=== PATIENT | female | born 1955 | race Caucasian/White ===

== ENCOUNTER → 2019-11-26 | Outpatient (CLI) | payer OTHER ==
[~2019-11-26] MED LIST: CALCIUM OYSTER500 MG PO; COMPAZINE10 M1 PO; DYAZIDE 37.5-21 EACH PO; FISHOIL; FLEXERIL PO; FOSAMAX 70 MG T70 M1 PO; GENTEAL GEL DRO15 ML; GLUCOPHAGE1000 MG PO; HYDROXYCHLOROQ200 M1 PO; IBUPROFEN 200200 M1 PO; LEXAPRO20 MG PO; MOBIC15 MG PO; MULTIVITAMINS PO; NASOCORT NS; PROTONIX40 M2 PO; REFRESH5 ML; RESTASIS1 EACH OP; TRAMADOL 50 MG50 MG PO; TYLENOL325 MG PO; VENTOLIN17 GM INH; VERAPAMIL ER240 M1 PO; VITAMIN D1000 UNI1 PO; ZOCOR 20 MG TAB20 M1 PO; ZYRTEC10 M2 PO
== END ==
LOC: CAT 14:23
PROVIDERS: ATTEND Internal Medicine Cardiovascular Disease
DX: Z13.6 Encounter for screening for cardiovascular disorders (principal); I25.10 Atherosclerotic heart disease of native coronary artery without angina pectoris; E78.00 Pure hypercholesterolemia, unspecified

== ENCOUNTER → 2019-11-26 | Outpatient (CLI) | payer OTHER | LOC: SJCVC 13:15 | PROVIDERS: ATTEND Internal Medicine Cardiovascular Disease | DX: R00.2 Palpitations (principal); R06.02 Shortness of breath; I10 Essential (primary) hypertension; E11.9 Type 2 diabetes mellitus without complications; E78.00 Pure hypercholesterolemia, unspecified; Z79.899 Other long term (current) drug therapy; Z82.49 Family history of ischemic heart disease and other diseases of the circulatory system ==

== ENCOUNTER → 2019-12-18 | Outpatient (CLI) | payer OTHER | LOC: SJCVCIMAG 08:54 | PROVIDERS: ATTEND Internal Medicine Cardiovascular Disease | DX: R00.2 Palpitations (principal); E11.9 Type 2 diabetes mellitus without complications ==

== ENCOUNTER → 2020-10-01 | Outpatient (CLI) | payer OTHER, MEDICARE | LOC: SJCVC 11:08 | PROVIDERS: ATTEND Internal Medicine Cardiovascular Disease | DX: R93.1 Abnormal findings on diagnostic imaging of heart and coronary circulation (principal); I10 Essential (primary) hypertension; E78.00 Pure hypercholesterolemia, unspecified; E11.9 Type 2 diabetes mellitus without complications; R00.2 Palpitations; M35.00 Sjogren syndrome, unspecified; Z82.49 Family history of ischemic heart disease and other diseases of the circulatory system; Z79.84 Long term (current) use of oral hypoglycemic drugs; Z79.899 Other long term (current) drug therapy; Z72.89 Other problems related to lifestyle; Z88.5 Allergy status to narcotic agent; Z88.8 Allergy status to other drugs, medicaments and biological substances ==

== ENCOUNTER 2020-12-28 08:58 | Emergency (ER) | payer OTHER, MEDICARE ==
[~2020-12-28] VITALS: Ht 167.6 cm; Wt 76.2 kg
[2020-12-28 09:44] LABS: EOSINOPHILS 1.3 % (0.0-3.0); LYMPHOCYTES 35.2 % (24.0-44.0); MCV 87.9 fL (80.0-100.0)
[2020-12-28 09:46] LABS: ABSOLUTE NEUTROPHILS 3.6 thou/uL (1.4-8.2); HEMATOCRIT 35.4 % (37.0-47.0); HEMOGLOBIN 12.3 gm/dL (12.0-15.0); MCH 30.5 pg (26.0-34.0); MCHC 34.7 g/dL (28.0-37.0); MONOCYTES 6.8 % (1.0-8.0); PLATELET COUNT 155 thou/uL (150-400); POLYS 55.7 % (36.0-66.0); RBC 4.03 mil/uL (4.20-5.00); WBC 6.5 thou/uL (4.0-11.0)
[2020-12-28 09:50] LABS: CALCIUM 8.8 mg/dL (8.5-10.1)
[2020-12-28 10:00] LABS: ALBUMIN 3.7 g/dL (3.4-5.0); TOTAL BILIRUBIN 0.3 mg/dL (0.2-1.0)
[2020-12-28 12:29] VITALS: BP 125/80
--- NOTE | 2020-12-28 15:09 | EKG ---
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
== END 2020-12-28 12:29 | disposition home or self-care (01) ==
LOC: ER 08:58
PROVIDERS: Emergency Medicine
DX: R07.89 Other chest pain (principal); I10 Essential (primary) hypertension; Z90.49 Acquired absence of other specified parts of digestive tract; Z79.899 Other long term (current) drug therapy; Z88.5 Allergy status to narcotic agent; Z98.51 Tubal ligation status; Z88.8 Allergy status to other drugs, medicaments and biological substances; Z91.038 Other insect allergy status

== ENCOUNTER → 2021-01-07 | Outpatient (CLI) | payer OTHER, MEDICARE | LOC: SJCVCIMAG 11:11 | PROVIDERS: ATTEND Internal Medicine Cardiovascular Disease | DX: I08.3 Combined rheumatic disorders of mitral, aortic and tricuspid valves (principal); I10 Essential (primary) hypertension; E78.5 Hyperlipidemia, unspecified; E11.9 Type 2 diabetes mellitus without complications; Z79.899 Other long term (current) drug therapy ==